=== PATIENT | male | born 2000 | race American Indian/Alaskan Native ===

== ENCOUNTER 2022-03-29 06:06 | Emergency (ER) | payer OTHER ==
[2022-03-29 06:16] VITALS: BP 113/70; PULSE 68
[2022-03-29] MEDS ORDERED: Silver Sulfadiazine 1% Crm 50 GM Tube TOP ONE (06:17)
== END 2022-03-29 06:32 | disposition home or self-care (01) ==
LOC: DL.ED 06:06
DX: T23.101A Burn of first degree of right hand, unspecified site, initial encounter (principal); T25.122A Burn of first degree of left foot, initial encounter; F17.210 Nicotine dependence, cigarettes, uncomplicated; Z91.030 Bee allergy status; X08.8XXA Exposure to other specified smoke, fire and flames, initial encounter
CPT/HCPCS: 16020; 99283; A9270